=== PATIENT | female | born 2000 | race Asian ===

== ENCOUNTER 2020-11-15 16:57 | Emergency (ER) | payer MEDICAID ==
[~2020-11-15] VITALS: Ht 152.4 cm; Wt 54.4 kg
[2020-11-15 17:54] VITALS: BP 111/71
[2020-11-15] MEDS ORDERED: IBUPROFEN 600 MG TAB PO ONE (18:00)
== END 2020-11-15 18:17 | disposition home or self-care (01) ==
LOC: ER 16:57
DX: S00.83XA Contusion of other part of head, initial encounter (principal); F17.210 Nicotine dependence, cigarettes, uncomplicated; V43.52XA Car driver injured in collision with other type car in traffic accident, initial encounter; Y93.89 Activity, other specified; Y92.89 Other specified places as the place of occurrence of the external cause; Y99.8 Other external cause status
CPT/HCPCS: 70110